=== PATIENT | female | born 1955 | race African-American/Black ===

== ENCOUNTER → 2017-09-29 | Outpatient (CLI) | payer OTHER ==
[2017-09-29 10:19] LABS: ABSOLUTE BASOPHILS # (AUTO) 0.1 10^3/uL (0.0-0.2); ABSOLUTE EOSINOPHILS # (AUTO) 0.1 10^3/uL (0.0-0.6); ABSOLUTE LYMPHOCYTES (AUTO) 1.1 10^3/uL (0.5-4.7); ABSOLUTE MONOCYTES (AUTO) 0.8 10^3/uL (0.1-1.4); ABSOLUTE NEUT (AUTO) 9.2 10^3/uL (1.7-8.2); BASOPHILS % (AUTO) 0.5 % (0-2); HEMATOCRIT 42.4 % (36.0-47.0); LYMPHOCYTES % (AUTO) 9.9 % (13-45); MEAN CORPUSCULAR HEMOGLOBIN 26.8 pg (27.0-33.4); MEAN CORPUSCULAR VOLUME 81 fl (80-97); MONOCYTES % (AUTO) 6.9 % (3-13); PLATELET COUNT 221 10^3/uL (150-450); RED BLOOD COUNT 5.23 10^6/uL (3.72-5.28); RED CELL DISTRIBUTION WIDTH 14.9 % (11.5-14.0); SEGMENTED NEUTROPHILS % (AUTO) 81.7 % (42-78); TOTAL CELLS COUNTED % (AUTO) 100 %; WHITE BLOOD COUNT 11.3 10^3/uL (4.0-10.5)
[2017-09-29 10:46] LABS: ALANINE AMINOTRANSFERASE 22 U/L (9-52); ALBUMIN 4.4 g/dL (3.5-5.0); ALKALINE PHOSPHATASE 58 U/L (38-126); ANION GAP 13 (5-19); ASPARTATE AMINO TRANSFERASE 21 U/L (14-36); BILIRUBIN,DIRECT 0.3 mg/dL (0.0-0.4); BILIRUBIN,TOTAL 1.3 mg/dL (0.2-1.3); BLOOD UREA NITROGEN 20 mg/dL (7-20); CALCIUM 9.7 mg/dL (8.4-10.2); CARBON DIOXIDE 30 mmol/L (22-30); CHLORIDE 100 mmol/L (98-107); CHOLESTEROL 222.41 mg/dL (0-200); GLUCOSE 95 mg/dL (75-110); POTASSIUM 4.6 mmol/L (3.6-5.0); SODIUM 142.5 mmol/L (137-145); TRIGLYCERIDES 96 mg/dL (<150)
[2017-09-29 10:57] LABS: DIRECT LDL 98 mg/dL (<100)
--- NOTE | 2017-09-29 11:11 | RADIOLOGY REPORT (SQ) ---
EXAM DESCRIPTION: HIP LEFT AP/LATERAL COMPLETED DATE/TIME: 09/29/2017 10:10 am REASON FOR STUDY: PAIN IN LEFT HIP M25.552 PAIN IN LEFT HIP COMPARISON: None. NUMBER OF VIEWS: Two views. TECHNIQUE: AP pelvis and additional frog-leg view of the left hip. LIMITATIONS: None. FINDINGS: MINERALIZATION: Normal. LEFT HIP: No fracture or dislocation. No significant joint space narrowing. No worrisome bone lesio ns. RIGHT HIP: No fracture or dislocation. No significant joint space narrowing. No worrisome bone lesi ons. PUBIS AND ISCHIUM: No fracture. PELVIS: No fracture. SACRUM: No acute fracture. Right SI joint unremarkable. Left SI joint sclerosis. LOWER LUMBAR SPINE: Lower lumbar facet arthropathy SOFT TISSUES: Calcified left pelvic fibroid OTHER: No other significant finding. IMPRESSION: no acute findings. Sclerosis left SI joint. TECHNICAL DOCUMENTATION: JOB ID: [id number] [employer]- All Rights Reserved Reading location - IP/workstation name: [email or web address]
== END ==
LOC: OD 09:27
DX: M25.552 Pain in left hip (principal); I10 Essential (primary) hypertension
CPT/HCPCS: 36415; 80053; 80061; 83036; 84443; 85025

== ENCOUNTER 2018-01-12 07:44 | Day surgery (SDC) | payer SELFPAY ==
[~2018-01-12 07:44] MED LIST: KETOROLAC TROMETHAMINE 0.45% 4 DROP/0.4 ML DROPERETTE OS PRN
[2018-01-12] MEDS ORDERED: EPINEPHRINE INJ/PF 1 MG/1 ML AMPULE ONE (08:12)
[2018-01-12] MEDS ORDERED: CHONDR SU A NA/HYALUR INTRAOC KIT (SURGICARE) ONE (08:13)
[2018-01-12] MEDS ORDERED: TRYPAN BLUE 0.06 % OPH SOLN 0.5 ML DISP.SYRIN ONE (08:13)
[2018-01-12] MEDS ORDERED: LIDOCAINE 1% INJ-PF (10 MG/ML) 30 ML SDV ONE (08:13)
[2018-01-12] MEDS: TROPICAMIDE 1% OPH SOLN 3 ML OS PRN ×3 (08:22→08:45)
[2018-01-12] MEDS: TETRACAINE HCL 0.5% OPH SOLN 4 ML OS PRN ×3 (08:22→08:58)
[2018-01-12] MEDS: BESIFLOXACIN HCL 0.6% OPH SUSP 5 ML BOTTLE OS PRN ×4 (08:22→09:18)
[2018-01-12] MEDS: CYCLOPENTOLATE 0.2%/PHENYLEPHRINE 1% OPH SOLN 2 ML OS PRN ×3 (08:22→08:45)
[2018-01-12] MEDS ORDERED: MIDAZOLAM 2 MG/2 ML INJ ONE (08:36)
[2018-01-12] MEDS ORDERED: FENTANYL CITRATE INJ/PF 100 MCG/2 ML AMPUL ONE (08:36)
[2018-01-12] MEDS ORDERED: LIDOCAINE 1%/PHENYLEPHRINE 1.5% 1 ML VIAL ONE (08:43)
--- NOTE | 2018-01-12 16:12 | [facility] OPERATIVE REPORT E ---
[facility] Operative Report NAME: TO GANN AGE: 63Y DATE OF SURGERY: 01/12/2018 ROOM: PREOPERATIVE DIAGNOSIS: MATURE CATARACT, LEFT EYE. POSTOPERATIVE DIAGNOSIS: MATURE CATARACT, LEFT EYE. OPERATION: Complex cataract extraction with use of Trypan Blue dye due to poor red reflex and insertion of an IOL of the left eye. SURGEON: MOSHE HUBER M.D. ANESTHESIA: Topical. BLOOD LOSS: Less than 2 mL. PROCEDURE: After obtaining appropriate consent, the patient's left eye was prepped and draped in sterile fashion as well as the surgeon in a sterile manner and cataract surgery was started. First a paracentesis blade was used to make a side-port incision. Viscoelastic was used to inflate the anterior chamber. Next a 2.4 mm incision was made with a 2.4 mm blade, clear corneal temporally. A continuous capsulorrhexis was made using a cystotome and Utrata forceps. Following this hydrodissection was carried out to make the lens fully loose and mobile and it was rotated 90 degrees. Following this, a qotscx-zwp-uovjied technique was used to phacoemulsify the lens with a CDE of 5.31. The remaining cortex was removed with irrigation/aspiration. Provisc was instilled into the capsular bag to inflate the bag. A SN60WF, 20.0 diopter lens was placed. The remaining viscoelastic material was removed with irrigation/aspiration. Following this, the incision was found to be watertight. Besivance was instilled into the eye and a protective shield was placed over the eye. The patient returned to the postoperative recovery in stable condition. Prior to making the capsulorrhexis, Trypan Blue dye was used to stain the anterior capsule. This was removed after the staining was performed. DICTATING PHYSICIAN: MOSHE HUBER M.D. [id number] PHY#: [id number] ID: [id number] JOB#: [id number] ACCT: [id number] cc:MOSHE HUBER M.D. >
--- NOTE | 2018-01-12 16:16 | [facility] DISCHARGE SUMMARY E ---
[facility] Discharge Summary NAME: TO GANN AGE: 63Y ADMITTED: 01/12/2018 DISCHARGED: 01/12/2018 DIAGNOSIS: MATURE CATARACT, LEFT EYE. SUMMARY: This is a 63-year-old female who underwent complex cataract extraction, left eye, with the use of Trypan Blue dye. Patient underwent surgery because she was having difficulty seeing road signs. DISCHARGE INSTRUCTIONS: Patient should be on a regular diet, no bending at the waist, and no heavy lifting. She should use her Vigamox, Ilevro, Durezol at 3 p.m. and 8 p.m. and sleep with a rigid shield. I will see her for her 1-day postoperative tomorrow. DICTATING PHYSICIAN: MOSHE HUBER M.D. [id number] PHY#: [id number] ID: [id number] JOB#: [id number] ACCT: [id number] cc:MOSHE HUBER M.D. >
== END 2018-01-12 10:06 | disposition home or self-care (01) ==
LOC: SC 07:44
PROVIDERS: ATTEND Internal Medicine
DX: H25.89 Other age-related cataract (principal); I10 Essential (primary) hypertension; E78.00 Pure hypercholesterolemia, unspecified; M19.90 Unspecified osteoarthritis, unspecified site; E66.9 Obesity, unspecified; Z68.35 Body mass index [BMI] 35.0-35.9, adult; Z79.899 Other long term (current) drug therapy
CPT/HCPCS: 66982; V2632; J2250; J3490 ×3; J0171; J3010; J2370